=== PATIENT | female | born 1955 | race Caucasian/White ===

== ENCOUNTER → 2016-10-07 | Outpatient (CLI) | payer MEDICARE, OTHER | LOC: KOH-I 13:01 | DX: M54.5 Low back pain (principal); M47.816 Spondylosis without myelopathy or radiculopathy, lumbar region; M47.814 Spondylosis without myelopathy or radiculopathy, thoracic region | CPT/HCPCS: 72070; 72110 ==

== ENCOUNTER → 2016-11-20 | Outpatient (CLI) | payer MEDICARE, OTHER | LOC: KOH-I 08:51 | DX: R10.31 Right lower quadrant pain (principal); R10.32 Left lower quadrant pain; K59.00 Constipation, unspecified | CPT/HCPCS: 74177; Q9962 ==

== ENCOUNTER → 2016-12-22 | Outpatient (CLI) | payer MEDICARE, OTHER | LOC: HEART 5 08:42 | DX: R07.9 Chest pain, unspecified (principal); R06.02 Shortness of breath | CPT/HCPCS: 78452; 93306; A9502; J2785 ==

== ENCOUNTER → 2020-07-30 | Outpatient (CLI) | payer MEDICARE, OTHER ==
[~2020-07-30] MED LIST: BREO ELLIPTA 11 EACH INH; COZAAR50 MG PO; DITROPAN 5 MG TA5 MG PO; DRISDOL1250 MCG PO; ENOXAPARIN40 MG/0.4 SC; GLUCOPHAGE XR500 MG PO; IMDUR ER TAB 3030 MG PO; INCRUSE ELLI62.5 MCG INH; LIPITOR40 MG PO; NEURONTIN800 MG PO; NORVASC10 MG PO; OMEGA 3 1,0001 EACH PO; PERCOCET 5-3251 EACH PO; PERCOCET 5/325 T1 EA PO; PLETAL 100 MG100 MG PO; PROTONIX40 MG PO; SEROQUEL100 MG PO; SEROQUEL50 MG PO; SYNTHROID125 MCG PO; TOPROL XL50 MG PO; VISTARIL25 MG PO; WELLBUTRIN SR150 M1 PO; XYZAL5 MG PO
== END ==
LOC: KOH-I 10:02
DX: Z12.2 Encounter for screening for malignant neoplasm of respiratory organs (principal); F17.210 Nicotine dependence, cigarettes, uncomplicated; J84.10 Pulmonary fibrosis, unspecified; R91.1 Solitary pulmonary nodule; I25.10 Atherosclerotic heart disease of native coronary artery without angina pectoris
CPT/HCPCS: G0297

== ENCOUNTER 2020-08-23 10:52 | Inpatient (IN) | payer MEDICARE, OTHER ==
[~2020-08-23] VITALS: Ht 162.6 cm; Wt 77.1 kg
[~2020-08-23 10:52] MED LIST changes: -ENOXAPARIN40 MG/0.4 SC; -PERCOCET 5-3251 EACH PO; -PERCOCET 5/325 T1 EA PO; -VISTARIL25 MG PO
[2020-08-23 11:48] LABS: HEMOGLOBIN 13.7 gm/dl (12.3-15.3); RED BLOOD COUNT 4.75 M/UL (4.00-5.10); WHITE BLOOD COUNT 20.1 K/UL (4.5-11.0)
[2020-08-23 12:12] LABS: BUN/CREATININE RATIO 39 (0-10)
[2020-08-23] MEDS ORDERED: VISTARIL25 MG PO (13:53)
[2020-08-24 01:44] LABS: HEMOGLOBIN 12.8 gm/dl (12.3-15.3); RED BLOOD COUNT 4.46 M/UL (4.00-5.10); WHITE BLOOD COUNT 18.8 K/UL (4.5-11.0)
[2020-08-24 02:10] LABS: BUN/CREATININE RATIO 27 (0-10)
[2020-08-24 08:36] LABS: RED BLOOD COUNT 4.15 M/UL (4.00-5.10); WHITE BLOOD COUNT 19.8 K/UL (4.5-11.0)
[2020-08-24 08:58] LABS: BUN/CREATININE RATIO 25 (0-10)
[2020-08-25 06:00] LABS: HEMOGLOBIN 11.3 gm/dl (12.3-15.3); RED BLOOD COUNT 3.9 M/UL (4.00-5.10); WHITE BLOOD COUNT 15.3 K/UL (4.5-11.0)
[2020-08-25 06:15] LABS: BUN/CREATININE RATIO 27 (0-10)
--- NOTE | 2020-08-27 10:28 | NUR ---
PATIENT CONTINOUSLY REFUSED TO GET OUT OF BED. ENCOURAGED SEVERTAL KATHARINA DURING THE COURSE OF MY CARE FOR HER TO GET OUT OF BED AND AMBULATES WITH ASSISTANCE AND SIT UP IN CHAIR AND TO BEAR WEIGHT. PROVIDED PAIN MEDICATIONS PRIOR TO AMBULATION BUT CONTINOUSLY REFUSED. WILL INFORM MD.
--- NOTE | 2020-08-27 10:37 | NUR ---
PATIENT REFUSED MORPHINE FOR PAIN, AMANDA ENCOURAGED PATIENT THE IMPORTANCE OF INCREASE ACTIVITY. PATIENT CONTINOUSLY REFUSED GETTING OUT OF BED AND AMBULATES WITH ASSISTANCE FROM PHYSICAL THERAPHY AND PAIN MANAGEMENT. NOTIFIED ELIZABETH NELSON FROM ORTHOPEDICS OF THE SITUATION AND ACKNOWLEDGED
[2020-08-27] MEDS ORDERED: ENOXAPARIN40 MG/0.4 SC (11:16)
[2020-08-27] MEDS ORDERED: PERCOCET 5/325 T1 EA PO (11:16)
[2020-08-27] MEDS ORDERED: PERCOCET 5-3251 EACH PO (11:26)
--- NOTE | 2020-08-27 14:50 | NUR ---
report given to admitting nurse [facility].
--- NOTE | 2020-08-27 15:23 | NUR ---
spoken with dr. grimes while he was on the floor earlier and reported patient refused to increase activiy, ambulates even with assistance and received services from PT/OT,provided pain management- he stated he will talk to the patient
--- NOTE | 2020-08-27 15:32 | NUR ---
verified home health visit and it will be tommorow 08/28/20. informed patient of the above and acknowledged
--- NOTE | 2020-08-27 16:54 | NUR ---
PATIENT ADMINISTERED LOVENOX WITH VERBAL INSTRUCTIONS AND DEMONSTRATED WELL. PATIENT CONFIDENT WILL BE ABLE TO PERFORM WIHT NO DIFFICULTY
== END 2020-08-27 18:24 | disposition home health service (06) | DRG 481 ==
LOC: ER1 10:52 → M/S 13:29 → ZEROF 13:29 → M/S 15:16
PROVIDERS: Emergency Medicine; Orthopaedic Surgery; Physician Assistant Medical; ADMIT Internal Medicine Infectious Disease
PROC: 0QS606Z Reposition Right Upper Femur with Intramedullary Internal Fixation Device, Open Approach (ICD-10-PCS; principal; 2020-08-24)
DX: S72.141A Displaced intertrochanteric fracture of right femur, initial encounter for closed fracture (principal); R65.10 Systemic inflammatory response syndrome (SIRS) of non-infectious origin without acute organ dysfunction; N30.00 Acute cystitis without hematuria; Z20.822 Contact with and (suspected) exposure to COVID-19; B96.20 Unspecified Escherichia coli [E. coli] as the cause of diseases classified elsewhere; E03.9 Hypothyroidism, unspecified; I10 Essential (primary) hypertension; E78.5 Hyperlipidemia, unspecified; F17.210 Nicotine dependence, cigarettes, uncomplicated; E11.51 Type 2 diabetes mellitus with diabetic peripheral angiopathy without gangrene; W18.39XA Other fall on same level, initial encounter; Y93.9 Activity, unspecified; Y92.009 Unspecified place in unspecified non-institutional (private) residence as the place of occurrence of the external cause; Z79.84 Long term (current) use of oral hypoglycemic drugs; Z79.890 Hormone replacement therapy; Z79.899 Other long term (current) drug therapy
CPT/HCPCS: 36415; 71045; 73502; 73552; 73560; 76000; 80048; 80053; 81001; 82550; 82553; 82962; 83036; 83735; 83874; 84484; 85025; 85027; 85610; 85730; 87040; 87077; 87086; 87186; 93005; 96374; 96375; 97163; 97165; 97530-GP-CQ; 97535; 99284; C1713; J0696; J1100; J1170; J1650; J1885; J2001; J2250; J2270; J2405; J2704; J2710; J3010; J3370; J7030; J7070; J7120; U0002

== ENCOUNTER → 2020-12-23 | Outpatient (CLI) | payer MEDICARE, OTHER ==
[~2020-12-23] MED LIST changes: +ENOXAPARIN40 MG/0.4 SC; +PERCOCET 5-3251 EACH PO; +PERCOCET 5/325 T1 EA PO; +VISTARIL25 MG PO
== END ==
LOC: KOH-I 13:09
DX: S72.143A Displaced intertrochanteric fracture of unspecified femur, initial encounter for closed fracture (principal); M25.531 Pain in right wrist
CPT/HCPCS: 73110; 73502

== ENCOUNTER → 2021-03-31 | Outpatient (CLI) | payer MEDICARE, OTHER | LOC: KOH-I 03-26 14:30 | DX: M54.5 Low back pain (principal); M51.36 Other intervertebral disc degeneration, lumbar region | CPT/HCPCS: 72148 ==